=== PATIENT | female | born 1985 | race African-American/Black ===

== ENCOUNTER 2017-04-27 20:47 | Emergency (ER) | payer OTHER ==
[~2017-04-27] VITALS: Ht 162.6 cm; Wt 72.3 kg
[2017-04-27] MEDS ORDERED: VENTAER IN (21:02)
[2017-04-27 23:48] LABS: BASO % 0.4 % (0.0-1.0); EOS # 0.4 10^3/uL (0.0-0.50); EOS % 4.4 % (0.0-3.0); IMMATURE GRANULOCYTE % 0.1 % (0-0); LYMPH # 2.4 10^3/uL (1.5-4.5); LYMPH % 25.6 % (24.0-44.0); MEAN CORPUSCULAR HEMOGLOBIN 28.2 pg (27.0-33.0); MEAN CORPUSCULAR HGB CONC 31.9 g/dl (32.0-36.5); MEAN CORPUSCULAR VOLUME 88.2 fl (80.0-96.0); MONO # 0.5 10^3/uL (0.0-0.8); MONO % 4.9 % (0.0-5.0); NEUTROPHILS % 64.6 % (36.0-66.0); PLATELET COUNT, AUTOMATED 347 10^3/uL (150-450); RED CELL DISTRIBUTION WIDTH 14.4 % (11.5-14.5); WHITE BLOOD COUNT 9.4 10^3/uL (4.0-10.0)
[2017-04-28 00:44] LABS: CONTROL LINE HCG INT CTR LINE PRESENT; CONTROL LINE UCG INT CTR LINE PRESENT
[2017-04-28 01:27] LABS: ANION GAP 6 MEQ/L (8-16); BLOOD UREA NITROGEN 12 MG/DL (7-18); CALCIUM LEVEL 9.6 MG/DL (8.5-10.1); CARBON DIOXIDE LEVEL 28 MEQ/L (21-32); CHLORIDE LEVEL 106 MEQ/L (98-107); CREATININE FOR GFR 0.79 MG/DL (0.55-1.02); GLOMERULAR FILTRATION RATE > 60.0 (>60); GLUCOSE, FASTING 83 MG/DL (70-105); POTASSIUM SERUM 4.1 MEQ/L (3.5-5.1); SODIUM LEVEL 140 MEQ/L (136-145)
--- NOTE | 2017-04-28 01:30 | REPUSA ---
CLINICAL HISTORY: Pain. COMMENTS: Real time sonography with duplex doppler of the extremities bilaterally was performed with attention to the major deep venous structures. Evaluation reveals the common femoral, superficial femoral and popliteal veins bilaterally to be comp letely compressible without intraluminal thrombus. There is normal spontaneous phasic flow and augmen tation in all deep veins. The greater saphenous/common femoral vein junctions are patent bilaterally. IMPRESSION: No evidence of DVT in the lower extremities bilaterally. Thank you for your kind referral of this patient.
[2017-04-28 02:02] VITALS: BP 122/68
--- NOTE | 2017-04-28 09:33 | REP ---
Clinical: Chest pain . Comparison: None . Technique: PA and lateral. Findings: The mediastinum and cardiac silhouette are normal. The lung wright are clear and without acute consolidation, effusion, or pneumothorax. The skeletal structures are intact and normal. Impression: 1. No acute cardiopulmonary process. Signed by Sang Sinclair MD 04/28/2017 09:24 A
--- NOTE | 2017-04-29 08:41 | ECGEPIP ---
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
== END 2017-04-28 02:03 | disposition home or self-care (01) ==
LOC: M ED 20:47
DX: M79.661 Pain in right lower leg (principal); M79.662 Pain in left lower leg; J45.909 Unspecified asthma, uncomplicated; Z87.891 Personal history of nicotine dependence; Z82.49 Family history of ischemic heart disease and other diseases of the circulatory system; Z88.1 Allergy status to other antibiotic agents; Z88.0 Allergy status to penicillin; Z88.8 Allergy status to other drugs, medicaments and biological substances; Z91.041 Radiographic dye allergy status